=== PATIENT | male | born 1950 | race Caucasian/White ===

== ENCOUNTER 2016-03-08 08:19 | Emergency (ER) | payer MEDICARE, OTHER ==
[2016-03-08] MEDS ORDERED: ONDANSETRON ODT 4 MG TAB ONE (09:52)
[2016-03-08] MEDS ORDERED: MORPHINE 4 MG/ML SYR ONE (09:52)
== END 2016-03-08 10:13 | disposition home or self-care (01) ==
LOC: ER 08:19
DX: M51.16 Intervertebral disc disorders with radiculopathy, lumbar region (principal); G89.29 Other chronic pain; M54.41 Lumbago with sciatica, right side; M16.11 Unilateral primary osteoarthritis, right hip; I25.2 Old myocardial infarction; I11.9 Hypertensive heart disease without heart failure; E78.00 Pure hypercholesterolemia, unspecified; Z79.899 Other long term (current) drug therapy; Z87.891 Personal history of nicotine dependence
CPT/HCPCS: 72100; 73502; 96372; 99284; J2270

== ENCOUNTER 2016-03-15 10:01 | Emergency (ER) | payer MEDICARE, OTHER ==
[2016-03-15] MEDS ORDERED: ORPHENADRINE 60 MG/2 ML AMP ONE (10:43)
[2016-03-15] MEDS ORDERED: DILAUDID 1 MG/ML AMP ONE (10:43)
[2016-03-15] MEDS ORDERED: METHYLPRED SOD SUCC 125 MG/2 ML VIAL ONE (10:43)
== END 2016-03-15 11:33 | disposition home or self-care (01) ==
LOC: ER 10:01
DX: M54.5 Low back pain (principal); M19.90 Unspecified osteoarthritis, unspecified site
CPT/HCPCS: 96372; 99283; J1170; J2930